=== PATIENT | male | born 1955 | race Caucasian/White ===

== ENCOUNTER 2021-04-08 02:28 | Inpatient (IN) | payer MEDICARE ==
[~2021-04-08] VITALS: Ht 180.3 cm; Wt 82.8 kg
[2021-04-08 03:28] LABS: BASOPHIL 0.5 % (0-2); EOSINOPHIL 0.5 % (0-7); HCT 41.2 % (42.0-52.0); HGB 13.4 g/dl (13.2-18.0); LYMPHOCYTE 7.1 % (15-48); MCH 28.5 pg (25.0-31.0); MCHC 32.5 g/dL (32.0-36.0); MCV 87.7 fL (78.0-100.0); MONOCYTE 7.8 % (0-12); MPV 12.1 fL (6.0-9.5); NEUTROPHIL 83.7 % (41-80); NRBC 0.3; PLT 311 K/uL (150-400); RDW 16.5 % (11.5-14.0)
[2021-04-08 04:07] LABS: PROTHROMBIN TIME 53.2 SECONDS (11.4-13.6)
[2021-04-08 04:11] LABS: INR 6.29 (0.9-1.2)
[2021-04-08 04:55] LABS: ALBUMIN 3.3 g/dL (3.4-5.0); BILIRUBIN - TOTAL 3.7 mg/dL (0.2-1.0); GLOBULIN (CALCULATION) 3.3 g/dL; TOTAL PROTEIN 6.6 g/dL (6.4-8.2)
[2021-04-08 04:58] LABS: CREATININE 1.33 mg/dL (0.67-1.17)
[2021-04-08 04:59] LABS: POTASSIUM 5.1 mmol/L (3.5-5.1)
[2021-04-08] MEDS ORDERED: LASIX20 MG PO (11:08)
[2021-04-08] MEDS ORDERED: POTASSIUM CHLO10 MEQ PO (11:09)
[2021-04-08] MEDS ORDERED: WARFARIN SODIUM10 MG PO (11:10)
[2021-04-08] MEDS ORDERED: PRINIVIL10 MG PO (11:10)
[2021-04-08] MEDS ORDERED: VENTOLIN (2.5 MG/3 M INH (11:11)
[2021-04-08] MEDS ORDERED: COREG 3.125M3.125 MG PO (11:11)
[2021-04-08 15:08] LABS: BASOPHIL 0.8 % (0-2); EOSINOPHIL 1.7 % (0-7); HCT 42.7 % (42.0-52.0); LYMPHOCYTE 9.2 % (15-48); MCH 28.7 pg (25.0-31.0); MCHC 32.8 g/dL (32.0-36.0); MCV 87.7 fL (78.0-100.0); MONOCYTE 6.4 % (0-12); MPV 11.9 fL (6.0-9.5); NEUTROPHIL 81.3 % (41-80); NRBC 0.2; PLT 300 K/uL (150-400); RBC 4.87 M/uL (4.70-6.00); RDW 16.5 % (11.5-14.0); WBC 10.6 K/uL (4.0-10.5)
[2021-04-08 15:48] LABS: BUN/CREAT RATIO (CALC) 53.2 RATIO; CREATININE 1.24 mg/dL (0.67-1.17); POTASSIUM 4.3 mmol/L (3.5-5.1)
--- NOTE | 2021-04-08 17:02 | NUR ---
1451-HR 132 AND SUSTAINING 1500-HR 136 AND SUSTAINING IN THE 130'S DERICK RN WENT AND AUSCULTATED PATIENT HEART RATE TACHY WITH S1 AND S2 SOUNDS O2 SATURATION WAS MONITORED SAT WAS READING 83% AT THIS TIME LAB IS ALSO IN THE ROOM TRYING TO DRAW BLOOD. PT WAS PLACED ON 2 LITERS NASAL CANNULA CALLED DR MALDONADO AND HE WAS NOTIFED OF HEART RATE AND O2 SAT ORDERED STAT EKG EKG WAS COMPLETED AND READ SVT BP WAS CHECKED 164/114 1515 CARDIZEM 20MG IVP WAS ORDERED AND GIVEN 1520 BP RECHECKED 83/66 WITH A MAP OF 71 AND HEART RATE AT 61 DR MALDONADO AWARE 1534 HOOKED TO TELEMON 99/71 1548 110/76 CARDIZEM DRIP WAS ALSO PREVIOUSLY ORDERED 1620 HEART RATE SUSTAINING IN THE 70'S NO GOING ABOVE 80 BLOOD PRESSURE 106/74 DR MALDONADO MADE AWARE AND STATES TO HOLD THE CARDIZEM DRIP DR MALDONADO STATES THAT HE WILL REVIEW
--- NOTE | 2021-04-08 18:55 | NUR ---
MEDICAL RECORDS NUMBER TO GET PREVIOUS HEALTH HISTORY
--- NOTE | 2021-04-08 18:56 | NUR ---
PT HEART RATE INCREASED TO 130'S FROM 70'S DR MALDONADO WAS MADE AWARE ORDERED 10MG CARDIZEM IVP AND 30MG CARDIZEM PO. PT BLOOD PRESSURE AFTER ADMINISTRATION WAS 99/63 DR MALDONADO AWARE PT HEART RATE BACK IN THE 70'S AND IS STABLE WITH NO COMPLAINTS
[2021-04-08 19:43] LABS: IRON % SATURATION 7.3 %SAT (20-50)
[2021-04-09 04:05] LABS: BASOPHIL 0.6 % (0-2); EOSINOPHIL 4.6 % (0-7); HCT 38.3 % (42.0-52.0); HGB 12.8 g/dl (13.2-18.0); LYMPHOCYTE 8.1 % (15-48); MCH 28.9 pg (25.0-31.0); MCHC 33.4 g/dL (32.0-36.0); MCV 86.5 fL (78.0-100.0); MONOCYTE 6.9 % (0-12); MPV 11.9 fL (6.0-9.5); NEUTROPHIL 78.4 % (41-80); NRBC 0; PLT 277 K/uL (150-400); RBC 4.43 M/uL (4.70-6.00); RDW 16.3 % (11.5-14.0)
[2021-04-09 04:19] LABS: PROTHROMBIN TIME 47.2 SECONDS (11.4-13.6)
[2021-04-09 04:24] LABS: INR 5.41 (0.9-1.2)
[2021-04-09 04:42] LABS: ALBUMIN 2.9 g/dL (3.4-5.0); BILIRUBIN - TOTAL 2.6 mg/dL (0.2-1.0); BUN/CREAT RATIO (CALC) 55.2 RATIO; CREATININE 1.05 mg/dL (0.67-1.17); GLOBULIN (CALCULATION) 3.2 g/dL; MAGNESIUM 2.1 mg/dL (1.8-2.4); PHOSPHORUS 3.4 mg/dL (2.6-4.7); POTASSIUM 3.6 mmol/L (3.5-5.1); TOTAL PROTEIN 6.1 g/dL (6.4-8.2)
--- NOTE | 2021-04-09 15:42 | NUR ---
04/09/21 Mr. Rutledge lives in his own home. He has 2 roommates. According to Mr. Rutledge, the roommates assist with housekeeping and errands. He reports to have a rw, quad cane, and 3in1. - Mr. Rutledge had chosen [facility] . However, he was tanferred to [facility] today. [facility] was informed.
== END 2021-04-09 15:40 | disposition other institution (70) | DRG 280 ==
LOC: FER 02:28 → FTCU 04:26
PROVIDERS: Emergency Medicine; ADMIT Internal Medicine
DX: I50.23 Acute on chronic systolic (congestive) heart failure (principal); J96.01 Acute respiratory failure with hypoxia; I21.4 Non-ST elevation (NSTEMI) myocardial infarction; N17.9 Acute kidney failure, unspecified; R18.8 Other ascites; I48.92 Unspecified atrial flutter; G91.0 Communicating hydrocephalus; Z20.822 Contact with and (suspected) exposure to COVID-19; T45.515A Adverse effect of anticoagulants, initial encounter; J44.9 Chronic obstructive pulmonary disease, unspecified; G47.33 Obstructive sleep apnea (adult) (pediatric); D50.9 Iron deficiency anemia, unspecified; K74.60 Unspecified cirrhosis of liver; I48.91 Unspecified atrial fibrillation; N18.9 Chronic kidney disease, unspecified; I08.0 Rheumatic disorders of both mitral and aortic valves; F17.210 Nicotine dependence, cigarettes, uncomplicated; Z95.2 Presence of prosthetic heart valve; Z86.73 Personal history of transient ischemic attack (TIA), and cerebral infarction without residual deficits; Z98.890 Other specified postprocedural states; Z79.01 Long term (current) use of anticoagulants; Z79.899 Other long term (current) drug therapy
CPT/HCPCS: 36415; 36600; 70450; 71045; 71046; 80048; 80053; 82040; 82140; 82247; 82607; 82803; 83540; 83550; 83605; 83735; 83880; 84075; 84100; 84155; 84450; 84460; 84484; 85025; 85610; 93005; 94640; 97162; 97166; 97530-GP; 97535; G0480; J1940; J2916; U0002